=== PATIENT | male | born 1980 | race Caucasian/White ===

== ENCOUNTER 2017-07-03 07:37 | Emergency (ER) | payer OTHER ==
[~2017-07-03] VITALS: Ht 180.3 cm; Wt 70.5 kg
[~2017-07-03 07:37] MED LIST: CLON0.2T OR; TRAZ100T OR; ZOLO50TA OR; suboxone PO
[2017-07-03] MEDS ORDERED: CLON0.5T PO (07:49)
[2017-07-03] MEDS ORDERED: VITA1CAP40 PO (07:49)
[2017-07-03] MEDS ORDERED: SUBO4MIS SL (07:49)
[2017-07-03] MEDS ORDERED: KETOROLAC 60 MG/2 ML VIAL (J1885) IM ONE (08:15)
[2017-07-03] MEDS ORDERED: NAPR500T PO (08:34)
[2017-07-03] MEDS ORDERED: CYCL5TAB PO (08:34)
--- NOTE | 2017-07-03 08:37 | REP ---
CT study of the cervical spine without contrast: History: Trauma. Technique: Helical scanning is acquired and overlapping 2 mm high resolution axial images were generated and reviewed at bone and soft tissue window settings. Coronal and sagittal multiplanar re-formations images are generated. CT findings: There is no evidence of cervical spine element fracture. No skull base fracture is seen. Cervical vertebral body heights are preserved. Alignment is normal. Facet joints are normally aligned bilaterally at each cervical level on multiplanar re-formations images. There is no evidence of intraspinal or paraspinal hematoma. No extra vertebral abnormality is seen. Impression: Negative CT study of the cervical spine without contrast. No fracture seen. Signed by Toro Johnson MD 07/03/2017 08:28 A
[2017-07-03 09:06] VITALS: BP 126/76
== END 2017-07-03 09:07 | disposition home or self-care (01) ==
LOC: EDSEX 07:37 → EDBD 07:37 → M ED 07:37
DX: S13.4XXA Sprain of ligaments of cervical spine, initial encounter (principal); V43.62XA Car passenger injured in collision with other type car in traffic accident, initial encounter; Y92.410 Unspecified street and highway as the place of occurrence of the external cause; Y93.9 Activity, unspecified; Y99.9 Unspecified external cause status; G89.29 Other chronic pain; F19.20 Other psychoactive substance dependence, uncomplicated; F11.10 Opioid abuse, uncomplicated; F14.10 Cocaine abuse, uncomplicated; Z79.899 Other long term (current) drug therapy; Z88.5 Allergy status to narcotic agent
CPT/HCPCS: 72125; 96372; 99283; J1885

== ENCOUNTER 2019-06-09 17:55 | Emergency (ER) | payer OTHER, SELFPAY ==
[~2019-06-09] VITALS: Ht 180.3 cm; Wt 72.7 kg
[~2019-06-09 17:55] MED LIST changes: +CLON0.5T8 PO; +CYCL5TAB PO; +NAPR-837 PO; +SUBO4MIS SL; +VITA50005 PO
[2019-06-09] MEDS ORDERED: ONDANSETRON 4MG/2ML VIAL (J2405) As Ordered ONE (18:04)
[2019-06-09] MEDS ORDERED: ONDANSETRON 4MG/2ML VIAL (J2405) IV ONE (18:15)
[2019-06-09] MEDS ORDERED: NS 1,000 ML IV ONE ×2 (18:30→19:45)
[2019-06-09 19:08] LABS: BASO % 0.2 % (0.0-1.0); EOS # 0.1 10^3/uL (0.0-0.50); EOS % 0.3 % (0.0-3.0); HEMATOCRIT 45.8 % (42.0-52.0); LYMPH # 1.3 10^3/uL (1.5-4.5); LYMPH % 8.3 % (24.0-44.0); MEAN CORPUSCULAR HEMOGLOBIN 30.6 pg (27.0-33.0); MEAN CORPUSCULAR HGB CONC 34.9 g/dl (32.0-36.5); MEAN CORPUSCULAR VOLUME 87.6 fl (80.0-96.0); MONO # 0.5 10^3/uL (0.0-0.8); MONO % 3.2 % (0.0-5.0); NEUTROPHILS # 13.8 10^3/uL (1.8-7.7); NEUTROPHILS % 87.6 % (36.0-66.0); PLATELET COUNT, AUTOMATED 315 10^3/uL (150-450); RED BLOOD COUNT 5.23 10^6/uL (4.30-6.10); WHITE BLOOD COUNT 15.8 10^3/uL (4.0-10.0)
[2019-06-09 19:32] LABS: OSMOLALITY SERUM 285 MOSM/KG (275-295)
[2019-06-09] MEDS ORDERED: LORazepam 2 MG/ML VIAL (J2060) IV STA (19:40)
[2019-06-09 19:53] LABS: ACETAMINOPHEN LEVEL < 2.0 UG/ML (10.0-30.0); ALBUMIN 3.8 GM/DL (3.2-5.2); ALT/SGPT 33 U/L (12-78); BILIRUBIN,DIRECT 0.1 MG/DL (0.0-0.2); BILIRUBIN,TOTAL 0.4 MG/DL (0.2-1.0); BLOOD UREA NITROGEN 11 MG/DL (7-18); CALCIUM LEVEL 9.1 MG/DL (8.5-10.1); CARBON DIOXIDE LEVEL 23 MEQ/L (21-32); CHLORIDE LEVEL 105 MEQ/L (98-107); CPK CREATINE PHOSPHOKINASE 150 U/L (39-308); CREATININE FOR GFR 1.12 MG/DL (0.70-1.30); ETHYL ALCOHOL (ETHANOL) < 0.003 % (0.000-0.010); GLOMERULAR FILTRATION RATE > 60.0 (>60); GLUCOSE, FASTING 96 MG/DL (70-100); POTASSIUM SERUM 3.5 MEQ/L (3.5-5.1); SALICYLATE LEVEL 2.4 MG/DL (5.0-30.0); SODIUM LEVEL 142 MEQ/L (136-145); THYROID STIMULATING HORMONE 0.644 uIU/ML (0.358-3.740); TOTAL PROTEIN 7.2 GM/DL (6.4-8.2)
--- NOTE | 2019-06-09 20:08 | ECGEPIP ---
[facility] - ED Test Date: 2019-06-09 Pat Name: ARMEN NAJERA Department: Room: - Gender: Male [employer]: : [id number] Requested By: NICOLÁS Felder Order Number: [id number] Reading MD: Willard Ramos Measurements Intervals [place] Rate: 75 P: 67 IN: 138 QRS: 22 QRSD: 106 T: 28 QT: 338 QTc: 378 Interpretive Statements SINUS RHYTHM WITH SINUS ARRHYTHMIA INCOMPLETE RIGHT BUNDLE BRANCH BLOCK MINIMAL VOLTAGE CRITERIA FOR LVH, CONSIDER NORMAL VARIANT SEPTAL MYOCARDIAL INFARCTION, PROBABLY OLD BASELINE ARTIFACT MAY AFFECT READING BASELINE WANDERING MAY AFFECT READING NONSPECIFIC ST T WAVE CHANGES NO PRIOR ECG FOR COMPARISON STRONGLY RECOMMEND REPEATING ECG Electronically Signed on 06-09-2019 20:07:49 EDT by Willard Ramos
[2019-06-09 20:18] LABS: AMPHETAMINES LEVEL URINE NEGATIVE (NEGATIVE); BARBITURATES URINE NEGATIVE (NEGATIVE); BENZODIAZEPINES URINE NEGATIVE (NEGATIVE); CANNABINOIDS URINE NEGATIVE (NEGATIVE); COCAINE METABOLITE URINE NEGATIVE (NEGATIVE); METHADONE URINE NEGATIVE (NEGATIVE); OPIATES URINE NEGATIVE (NEGATIVE); PHENCYCLIDINE URINE NEGATIVE (NEGATIVE)
[2019-06-09 22:47] VITALS: BP 122/71
--- NOTE | 2019-06-10 10:33 | REP ---
CHEST, SINGLE VIEW: Single view of the chest is performed. Mild bibasilar atelectatic change with no acute infiltrate. Heart is not significantly enlarged. Mediastinal silhouette is unremarkable. There is an old left clavicular fracture affixed by a metallic plate and multiple screws. IMPRESSION: No acute infiltrate. Electronically Signed by Ed Pollock MD 06/11/2019 01:28 P
== END 2019-06-09 22:52 | disposition home or self-care (01) ==
LOC: M ED 17:55
DX: F11.23 Opioid dependence with withdrawal (principal); R00.0 Tachycardia, unspecified; Z88.5 Allergy status to narcotic agent; Z79.899 Other long term (current) drug therapy
CPT/HCPCS: 71045; 80048; 80076; 80307; 82550; 83930; 84443; 85025; 93005; 93041; 94760; 96374; 96375; 99285; G0480; J2060; J2405